=== PATIENT | female | born 1970 | race Two or more races ===

== ENCOUNTER 2017-12-26 08:57 | Emergency (ER) | payer MEDICAID ==
[2017-12-26 09:15] LABS: URINE MICROSCOPIC INDICATED? YES; URINE SOURCE CLEAN C
[2017-12-26 09:34] LABS: URINE BILIRUBIN NEGATIVE (NEGATIVE); URINE BLOOD LARGE (NEGATIVE); URINE GLUCOSE (UA) NEGATIVE (NEGATIVE); URINE KETONE 15 mg/dL (NEGATIVE); URINE LEUKOCYTE ESTERASE MODERATE (NEGATIVE); URINE NITRATE POSITIVE (NEGATIVE); URINE PH 6.5 (4.6 - 8.0); URINE PROTEIN >=300 mg/dL (NEGATIVE)
--- NOTE | 2017-12-26 09:35 | ED Physician Chart ---
ED Chief Complaint/HPI - Patient Information Date Seen:: 12/26/17 Time Seen:: 09:10 Chief Complaint:: VAGINAL BLEEDING History of Present Illness:: THIS IS A 47 YO FEMALE WHO IS CONCERNED ABOUT RECURRENT VAGINAL BLEEDING. SHE WAS SEEN HERE IN 2016 FOR THE SAME PROBLEM AND TRANSFERRED TO [facility] BUT DID NOT GET THE UTERUS REMOVED. ON HER LAST VISIT SHE HAD A VERY LOW BLOOD COUNT. SHE DENIES ALL OTHER MEDICAL PROBLEMS EXCEPT SOME 2/10 PELVIC PAIN. THE BLEEDING STARTED ON WEDNESDAY THE December. Allergies:: Allergies Allergy/AdvReac Type Severity Reaction Status Date / Time No Known Allergies Allergy Verified 12/26/17 09:05 Vitals:: Vital Signs - 8 hr 12/26/17 09:06 Temp 97.5 F HR 93 RR 16 BP 128/55 O2 Sat % 100 Historian:: Patient, Family Member Review:: Nurse's Note Reviewed ED Review of Systems - Review of Systems General/Constitutional: No fever, No chills, No weight loss, Weakness, No weakness, No diaphoresis, No edema, No loss of appetite Skin: No skin lesions, No rash, No bruising Head: No headache, No light-headedness Eyes: No loss of vision, No pain, No diplopia ENT: No earache, No nasal drainage, No sore throat, No tinnitus Neck: No neck pain, No swelling, No thyromegaly, No stiffness, No mass noted Cardio Vascular: No chest pain, No palpitations, No PND, No orthopnea, No edema Pulmonary: No SOB, No cough, No sputum, No wheezing GI: No nausea, No vomiting, No diarrhea, No pain, No melena, No hematochezia, No constipation, No hematemesis G/U: No dysuria, No frequency, No hematuria Rigging Supervisor: Abnormal vaginal bleeding Musculoskeletal: No bone or joint pain, No back pain, No muscle pain Endocrine: No polyuria, No polydipsia Psychiatric: No prior psych history, No depression, No anxiety, No suicidal ideation Hematopoietic: No bruising, No lymphadenopathy Allergic/Immuno: No urticaria, No angioedema Neurological: No syncope, No focal symptoms, No weakness, No paresthesia, No headache, No seizure, No dizziness, No confusion, No vertigo ED Past Medical History - Past Medical History Obtainable: Yes Past Medical History: No significant medical hx Family History: None Social History: Non Smoker, No Alcohol, No Drug Use, Surgical History: None Psychiatricy History: None Medication: Reviewed Family Medical History - Family Member Mother History Unknown: Yes ED Physical Exam - Physical Examination General/Constitutional: Awake, Well-developed, well-nourished, Alert, No distress, GCS 15, Non-toxic appearing, Ambulatory Head: Atraumatic Eyes: Lids, conjuctiva normal, PERRL, EOMI Skin: Nl inspection, No rash, No skin lesions, No ecchymosis, Well hydrated, No lymphadenopathy ENMT: External ears, nose nl, Nasal exam nl, Lips, teeth, gums nl Neck: Nontender, Full ROM w/o pain, No JVD, No nuchal rigidity, No bruit, No mass, No stridor Respiratory: Nl effort/Exclusion, Clear to Auscultation, No Wheeze/Rhonchi/Rales Cardio Vascular: RRR, No murmur, gallop, rubs, NL S1 S2 GI: No tenderness/rebounding/guarding, No organomegaly, No hernia, Normal BS's, Nondistended, No mass/bruits, No McBurney tenderness : No CVA tenderness Other comments:: THE UTERUS IS ENLARGED AND SLIGHTLY TENDER ON PALPATION. Extremities: No tenderness or effusion, Full ROM, normal strength in all extremities, No edema, Normal digits & nails Neuro/Psych: Alert/oriented, DTR's symmetric, Normal sensory exam, Normal motor strength, Judgement/insight normal, Mood normal, Normal gait, No focal deficits Misc: Normal back, No paraspinal tenderness ED Labs/Radiology/EKG Results - Lab Results Results: Abnormal Lab Results 12/26/17 12/26/17 12/26/17 09:12 09:22 09:22 WBC 5.1 RBC 3.48 L Hgb 9.2 L Hct 28.3 L MCV 81.2 MCH 26.4 L MCHC Differential 32.5 RDW 14.7 Plt Count 278 MPV 7.8 Neutrophils % 59.1 Lymphocytes % 32.2 Monocytes % 6.4 Eosinophils % 2.2 Basophils % 0.1 PT INR PTT (Actin FS) 20.6 L Sodium Potassium Chloride Carbon Dioxide Anion Gap BUN Creatinine Est GFR ( Amer) Est GFR (Non-Af Amer) BUN/Creatinine Ratio Glucose Calcium Total Bilirubin AST ALT Alkaline Phosphatase Total Protein Albumin Globulin Albumin/Globulin Ratio Urine Source CLEAN C Urine Color RED Urine Clarity CLOUDY H Urine pH 6.5 Ur Specific [place] 1.025 Urine Protein >=300 Urine Glucose (UA) NEGATIVE Urine Ketones 15 H Urine Blood LARGE H Urine Nitrate POSITIVE H Urine Bilirubin NEGATIVE Urine Urobilinogen 4.0 H Ur Leukocyte Esterase MODERATE H Urine RBC >100 H Urine WBC 0-2 Ur Epithelial Cells RARE Urine Bacteria FEW 12/26/17 12/26/17 09:22 09:22 WBC RBC Hgb Hct MCV MCH MCHC Differential RDW Plt Count MPV Neutrophils % Lymphocytes % Monocytes % Eosinophils % Basophils % PT 10.3 INR 0.99 PTT (Actin FS) Sodium 137 Potassium 4.0 Chloride 107 Carbon Dioxide 24.0 Anion Gap 10.0 BUN 15 Creatinine 0.6 Est GFR ( Amer) > 60.0 Est GFR (Non-Af Amer) > 60.0 BUN/Creatinine Ratio 25.0 Glucose 113 H Calcium 8.7 Total Bilirubin 0.5 AST 10 L ALT 7 Alkaline Phosphatase 58 Total Protein 6.1 Albumin 3.5 L Globulin 2.6 Albumin/Globulin Ratio 1.4 Urine Source Urine Color Urine Clarity Urine pH Ur Specific [place] Urine Protein Urine Glucose (UA) Urine Ketones Urine Blood Urine Nitrate Urine Bilirubin Urine Urobilinogen Ur Leukocyte Esterase Urine RBC Urine WBC Ur Epithelial Cells Urine Bacteria - Radiology Results Results: ULTRASOUND OF THE PELVIS = FIBROIDS NOTED AND AN ENLARGED UTERUS ED Assessment - Assessment General Assessment: UTERUS BLEEDING HEMATURIA ANEMIA FIBROID UTERUS ED Septic Shock - . Is Septic Shock (SBP<90, OR Lactate>4 mmol\L) present?: No - <6hrs of presentation: Vital Signs: Vital Signs - 8 hr 12/26/17 09:06 Temp 97.5 F HR 93 RR 16 BP 128/55 O2 Sat % 100 ED Reassessment (Disposition) - Reassessment Reassessment Condition:: Unchanged - Diagnosis Diagnosis:: ANEMIA VAGINAL BLEEDING HEMATURIA - Aftercare/Follow up Instructions Aftercare/Follow-Up Instructions:: Counseled pt regarding lab results/diagnosis & need follow up, Refer to Discharge Instructions, Counseled pt & family regarding lab results/diagnosis & need follow up Medication Prescribed:: Z-GIL, IRON TABLETS TWICE A DAY - Patient Disposition Discharge/Transfer:: Home Condition at Disposition:: Unchanged ED Discharge Plan - Patient Disposition Admit/Discharge/Transfer: PT DISCHARGED HOME Condition at Disposition: Unchanged Additional Instructions: THE PATIENT WAS INSTRUCTED TO SEE HER PMD IN THE NEXT TWENTY FOUR HOURS FOR FOLLOWUP TO SEE A OB-[employer] MECHANIC DOCTOR FOR MORE DEFINITIVE TREATMENT. SHE WAS ALSO TO START TAKING IRON TABLETS ALONG WITH THE ANTIBIOTICS. IF THE BLEEDING PERSIST SHE SHOULD CALL 911 FOR ASST TO THE NEAREST ER.
[2017-12-26 09:43] LABS: URINE COLOR RED
[2017-12-26 09:44] LABS: URINE BACTERIA FEW /hpf (NONE SEEN); URINE CLARITY CLOUDY (CLEAR); URINE EPITHELIAL CELLS RARE /lpf (FEW); URINE RBC >100 /hpf (0-5); URINE WBC 0-2 /hpf (0-5)
[2017-12-26 09:46] LABS: INR 0.99 (0.5-1.4); PROTHROMBIN TIME (TEST) 10.3 SECONDS (9.5-11.5)
[2017-12-26 09:52] LABS: ALB/GLOB RATIO 1.4 (1.0-1.8); ALBUMIN 3.5 gm/dL (3.7-5.3); ALKALINE PHOSPHATASE 58 U/L (34-104); BILIRUBIN,TOTAL 0.5 mg/dL (0.3-1.0); BUN - UREA NITROGEN 15 mg/dL (7-25); CALCIUM SERUM 8.7 mg/dL (8.6-10.3); CHLORIDE 107 mEq/L (98-107); CREATININE - SERUM 0.6 mg/dL (0.6-1.2); GFR AFRICAN-AMERICAN > 60.0 ml/min (>90); GFR NON AFRICAN-AMERICAN > 60.0 ml/min; GLUCOSE 113 mg/dL (70-105); SGOT 10 U/L (13-39); SGPT/ALT 7 U/L (7-52); SODIUM SERUM 137 mEq/L (136-145); TOTAL PROTEIN,SERUM 6.1 gm/dL (6.0-8.3)
[2017-12-26 10:00] LABS: % BASOPHILS 0.1 % (0.0-2.0); % EOSINOPHILS 2.2 % (0.0-5.0); % LYMPHOCYTES 32.2 % (20.0-50.0); % MONOCYTES 6.4 % (2.0-10.0); % NEUTROPHILS 59.1 % (40.0-80.0); EOSINOPHILE ABSOLUTE 0.1 Th/cmm (0.1-0.4); HEMATOCRIT 28.3 % (41.0-60); HEMOGLOBIN 9.2 gm/dL (12-16); LYMPHOCYTE ABSOLUTE 1.6 Th/cmm (1.5-3.0); MEAN CELL VOLUME 81.2 fl (81-100); MEAN CORPUSCULAR HEMOGLOBIN 26.4 pg (27.0-31.0); MEAN CORPUSCULAR HGB CONC 32.5 pg (28.0-36.0); MEAN PLATELET VOLUME 7.8 fl; MONOCYTE ABSOLUTE 0.3 Th/cmm (0.3-1.0); NEUTROPHILE ABSOLUTE 3.1 Th/cmm (1.8-8.0); PLATELET COUNT 278 Th/cmm (150-400); RED BLOOD COUNT 3.48 Mil/cmm (3.80-5.10); RED CELL DISTRIBUTION WIDTH 14.7 % (11.5-20.0); WHITE BLOOD COUNT 5.1 Th/cmm (4.8-10.8)
--- NOTE | 2017-12-27 07:40 | Diagnostic Imaging Report ---
Ultrasound pelvis HISTORY: Pelvic mass, vaginal bleeding. LMP 12/22/2017 COMPARISON: Pelvic ultrasound on 02/07/2015 Technique: Longitudinal and transverse sonographic sector images of the pelvis were obtained transabdominally and transvaginally. FINDINGS: Exam is limited due to body habitus and patient's enlarged uterus. The uterus appears markedly enlarged measuring 14.0 x 11.2 x 10.3 cm with what appear to be multiple large fibroids with largest area along the upper uterine body and fundal region measuring 8.4 x 2.4 cm. The endometrial echocomplex measures 7 mm. The ovaries are not visualized. No evidence of free fluid. IMPRESSION: Findings suggestive of enlarged uterus with a large fibroid. Due to limitations of this exam, a short-term follow-up CT or MRI is recommended for further assessment and clarification and to rule out other pelvic mass lesions.. The ovaries are not visualized. The endometrial complex measures 7 mm, correlate with menstrual cycle.
== END 2017-12-26 11:20 | disposition home or self-care (01) ==
LOC: ER 08:57
DX: N93.9 Abnormal uterine and vaginal bleeding, unspecified (principal); R31.9 Hematuria, unspecified; D64.9 Anemia, unspecified
CPT/HCPCS: 99285; 96372; 76857; 36415; 85025; 85610; 85730; 81001; 80053; J0696; J2001

== ENCOUNTER 2019-03-18 05:36 | Emergency (ER) | payer MEDICAID ==
[2019-03-18 06:13] LABS: % BASOPHILS 0.1 % (0.0-2.0); % EOSINOPHILS 3.8 % (0.0-5.0); % LYMPHOCYTES 32.2 % (20.0-50.0); % MONOCYTES 9.5 % (2.0-10.0); % NEUTROPHILS 54.4 % (40.0-80.0); EOSINOPHILE ABSOLUTE 0.2 Th/cmm (0.1-0.4); HEMATOCRIT 39.4 % (41.0-60); HEMOGLOBIN 12.6 gm/dL (12-16); LYMPHOCYTE ABSOLUTE 1.7 Th/cmm (1.5-3.0); MEAN CELL VOLUME 78.8 fl (81-100); MEAN CORPUSCULAR HEMOGLOBIN 25.3 pg (27.0-31.0); MEAN CORPUSCULAR HGB CONC 32.1 pg (28.0-36.0); MONOCYTE ABSOLUTE 0.5 Th/cmm (0.3-1.0); NEUTROPHILE ABSOLUTE 2.8 Th/cmm (1.8-8.0); PLATELET COUNT 273 Th/cmm (150-400); RED CELL DISTRIBUTION WIDTH 15.6 % (11.5-20.0); WHITE BLOOD COUNT 5.2 Th/cmm (4.8-10.8)
[2019-03-18 06:13] LABS: URINE SOURCE RANDOM
[2019-03-18 06:16] LABS: URINE BILIRUBIN NEGATIVE (NEGATIVE); URINE BLOOD TRACE (NEGATIVE); URINE GLUCOSE (UA) NEGATIVE (NEGATIVE); URINE KETONE NEGATIVE (NEGATIVE); URINE LEUKOCYTE ESTERASE NEGATIVE (NEGATIVE); URINE MICROSCOPIC INDICATED? YES; URINE NITRATE NEGATIVE (NEGATIVE); URINE PH 6.5 (4.6 - 8.0); URINE PROTEIN NEGATIVE (NEGATIVE); URINE UROBILINOGEN 0.2 E.U./dL (0.2 - 1.0)
[2019-03-18 06:26] LABS: URINE CLARITY CLEAR (CLEAR); URINE COLOR YELLOW
[2019-03-18 06:31] LABS: URINE BACTERIA 2+ /hpf (NONE SEEN); URINE EPITHELIAL CELLS FEW /lpf (FEW); URINE RBC 0-2 /hpf (0-5); URINE WBC 0-2 /hpf (0-5)
--- NOTE | 2019-03-18 06:41 | ED Physician Chart ---
ED Chief Complaint/HPI - Patient Information Date Seen:: 03/18/19 Time Seen:: 06:37 Chief Complaint:: epigastric pain History of Present Illness:: 48 yr old female with epigastric pain for 4 days no meds no nv no diarhea no dark stools or bloody emesis no radiation of pain Allergies:: Allergies Allergy/AdvReac Type Severity Reaction Status Date / Time No Known Allergies Allergy Verified 12/26/17 09:05 Vitals:: Vital Signs - 8 hr 03/18/19 05:37 Temp 97.6 F HR 76 RR 14 BP 140/71 O2 Sat % 96 ED Review of Systems - Review of Systems General/Constitutional: No fever Skin: No skin lesions Head: No headache Eyes: No loss of vision ENT: No earache Neck: No neck pain Cardio Vascular: No chest pain Pulmonary: No SOB GI: No nausea, No vomiting, No diarrhea, Pain Musculoskeletal: No bone or joint pain Endocrine: No polyuria Psychiatric: No prior psych history Hematopoietic: No bruising Allergic/Immuno: No urticaria Neurological: No syncope ED Past Medical History - Past Medical History Past Medical History: No significant medical hx Family Medical History - Family Member Mother History Unknown: Yes ED Physical Exam - Physical Examination General/Constitutional: Awake, Well-developed, well-nourished, Alert, No distress, GCS 15, Non-toxic appearing, Ambulatory Head: Atraumatic Eyes: Lids, conjuctiva normal, PERRL, EOMI Skin: Nl inspection, No rash, No skin lesions, No ecchymosis, Well hydrated, No lymphadenopathy ENMT: External ears, nose nl, Nasal exam nl, Lips, teeth, gums nl Neck: Nontender, Full ROM w/o pain, No JVD, No nuchal rigidity, No bruit, No mass, No stridor Respiratory: Nl effort/Exclusion, Clear to Auscultation, No Wheeze/Rhonchi/Rales Cardio Vascular: RRR, No murmur, gallop, rubs, NL S1 S2 GI: No organomegaly, No hernia, Normal BS's, Nondistended, No mass/bruits, No McBurney tenderness Other GI comments:: mild epigastric tenderness : No CVA tenderness Extremities: No tenderness or effusion, Full ROM, normal strength in all extremities, No edema, Normal digits & nails Neuro/Psych: Alert/oriented, DTR's symmetric, Normal sensory exam, Normal motor strength, Judgement/insight normal, Mood normal, Normal gait, No focal deficits Misc: Normal back, No paraspinal tenderness ED Labs/Radiology/EKG Results - Lab Results Results: Laboratory Tests 03/17/19 03/18/19 06:00 06:00 WBC 5.2 RBC 5.00 Hgb 12.6 Hct 39.4 L MCV 78.8 L MCH 25.3 L MCHC Differential 32.1 RDW 15.6 Plt Count 273 MPV 7.7 Neutrophils % 54.4 Lymphocytes % 32.2 Monocytes % 9.5 Eosinophils % 3.8 Basophils % 0.1 Urine Source RANDOM Urine Color YELLOW Urine Clarity CLEAR Urine pH 6.5 Ur Specific [place] <= 1.005 Urine Protein NEGATIVE Urine Glucose (UA) NEGATIVE Urine Ketones NEGATIVE Urine Blood TRACE Urine Nitrate NEGATIVE Urine Bilirubin NEGATIVE Urine Urobilinogen 0.2 Ur Leukocyte Esterase NEGATIVE Urine RBC 0-2 Urine WBC 0-2 Ur Epithelial Cells FEW Urine Bacteria 2+ H ED Assessment - Assessment General Assessment: epigastric pain ED Septic Shock - . Is Septic Shock (SBP<90, OR Lactate>4 mmol\L) present?: No - <6hrs of presentation: Vital Signs: Vital Signs - 8 hr 03/18/19 05:37 Temp 97.6 F HR 76 RR 14 BP 140/71 O2 Sat % 96 ED Reassessment (Disposition) - Reassessment Reassessment:: epigastric pain - Diagnosis Diagnosis:: epigastric pain - Aftercare/Follow up Instructions Medication Prescribed:: prilosec - Patient Disposition Discharge/Transfer:: Home Condition at Disposition:: Stable
[2019-03-18 07:03] LABS: ALB/GLOB RATIO 1.3 (1.0-1.8); ALBUMIN 3.9 gm/dL (3.7-5.3); ALKALINE PHOSPHATASE 72 U/L (34-104); ANION GAP 11.2 (7.0-16.0); BILIRUBIN,TOTAL 0.3 mg/dL (0.3-1.0); BUN - UREA NITROGEN 18 mg/dL (7-25); CALCIUM SERUM 9.7 mg/dL (8.6-10.3); CARBON DIOXIDE 25.6 mEq/L (21.0-31.0); CHLORIDE 105 mEq/L (98-107); CREATININE - SERUM 0.5 mg/dL (0.6-1.2); GFR AFRICAN-AMERICAN > 60.0 ml/min (>90); GFR NON AFRICAN-AMERICAN > 60.0 ml/min; GLUCOSE 104 mg/dL (70-105); POTASSIUM SERUM 3.8 mEq/L (3.5-5.1); SGOT 14 U/L (13-39); SGPT/ALT 11 U/L (7-52); SODIUM SERUM 138 mEq/L (136-145); TOTAL PROTEIN,SERUM 6.9 gm/dL (6.0-8.3)
== END 2019-03-18 07:15 | disposition home or self-care (01) ==
LOC: ER 05:36
DX: R10.13 Epigastric pain (principal)
CPT/HCPCS: 99283; 96374; 96375; 36415; 85025; 87086; 81001; 80053; C9113; J2405; Z7502